=== PATIENT | female | born 1955 | race Caucasian/White ===

== ENCOUNTER 2016-08-27 16:27 | Emergency (ER) | payer BC ==
[2016-08-27] MEDS ORDERED: IBUPROFEN 800 MG TABLET PO ONE (16:49)
--- NOTE | 2016-08-27 16:51 | ER Document Report ---
ED Medical Screen (RME) - General Chief Complaint: Shortness Of Breath Stated Complaint: RIGHT SIDE RIB/CHEST PAIN Time Seen by Provider: 08/27/16 16:41 Mode of Arrival: Wheelchair Information source: Patient TRAVEL OUTSIDE OF THE [place] IN LAST 30 DAYS: No - HPI Patient complains to provider of: right sided chest pain Associated Symptoms: Body/muscle aches, Chills, Cough (nonproductive), Dizzy/ lightheaded, Shortness of breath Notes: 08/27/16 16:50 Patient is a 61-year-old female with a history of asthma, frequent pneumonia, congestive heart failure, MS, DVT/PE, who is currently on Eliquis, as well as many other medications, she presents to the emergency room complaining of right- sided chest pain that is worsened with coughing or deep breathing, she has had a nonproductive cough for several weeks now, was prescribed a Z-Monty recently by her primary care provider which has not changed her symptoms at all, today she developed sided chest pain, she also has lightheadedness and dyspnea on exertion - Related Data Allergies/Adverse Reactions: No Known Allergies Allergy (Verified 08/27/16 16:37) Past Medical History - Social History Chew tobacco use (# tins/day): No Frequency of alcohol use: None Drug Abuse: None - Past Medical History Cardiac Medical History: Reports: Hx Heart Attack - 2014/Dr Joe Kingsley/gave ok Denies: Hx Coronary Artery Disease, Hx Hypertension Pulmonary Medical History: Reports: Hx Asthma, Hx Bronchitis - URI yearly until heart attack 2014, Hx Pneumonia - LL lobe Denies: Hx 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 Neurological Medical History: Denies: Hx Cerebrovascular Accident, Hx Seizures Renal/ Medical History: Denies: Hx Peritoneal Dialysis Musculoskeltal Medical History: Reports Hx Arthritis - ankles Psychiatric Medical History: Reports: Hx Depression - Immunizations Hx Diphtheria, Pertussis, Tetanus Vaccination: No Physical Exam - Vital signs Vitals: Temp Pulse Resp BP Pulse Ox 97.6 F 75 24 H 132/71 H 97 08/27/16 16:36 08/27/16 16:36 08/27/16 16:36 08/27/16 16:36 08/27/16 16:36 Course - Vital Signs Vital signs: Temp Pulse Resp BP Pulse Ox 97.6 F 75 24 H 132/71 H 97 08/27/16 16:36 08/27/16 16:36 08/27/16 16:36 08/27/16 16:36 08/27/16 16:36
[2016-08-27 17:26] LABS: ABSOLUTE BASOPHILS # (AUTO) 0.1 10^3/uL (0.0-0.2); ABSOLUTE EOSINOPHILS # (AUTO) 0.2 10^3/uL (0.0-0.6); ABSOLUTE LYMPHOCYTES (AUTO) 1.7 10^3/uL (0.5-4.7); ABSOLUTE MONOCYTES (AUTO) 0.5 10^3/uL (0.1-1.4); ABSOLUTE NEUT (AUTO) 4.2 10^3/uL (1.7-8.2); BASOPHILS % (AUTO) 1.1 % (0-2); EOSINOPHILS % (AUTO) 2.3 % (0-6); HEMATOCRIT 41.8 % (36.0-47.0); HEMOGLOBIN 13.5 g/dL (12.0-15.5); HGB HCT DIFFERENCE -1.3; LYMPHOCYTES % (AUTO) 26.3 % (13-45); MEAN CORPUSCULAR HEMOGLOBIN 29.9 pg (27.0-33.4); MEAN CORPUSCULAR HGB CONC 32.3 g/dL (32.0-36.0); MEAN CORPUSCULAR VOLUME 93 fl (80-97); MONOCYTES % (AUTO) 6.9 % (3-13); RED BLOOD COUNT 4.52 10^6/uL (3.72-5.28); RED CELL DISTRIBUTION WIDTH 14.1 % (11.5-14.0); SEGMENTED NEUTROPHILS % (AUTO) 63.4 % (42-78); WHITE BLOOD COUNT 6.6 10^3/uL (4.0-10.5)
[2016-08-27 17:36] LABS: PROTHROMBIN TIME 13.6 SEC (11.4-15.4)
[2016-08-27 17:37] LABS: PARTIAL THROMBOPLASTIN TIME 29.9 SEC (23.5-35.8)
--- NOTE | 2016-08-27 17:39 | RADIOLOGY REPORT (SQ) ---
EXAM DESCRIPTION: CHEST PA/LAT COMPLETED DATE/TIME: 08/27/2016 5:28 pm REASON FOR STUDY: right sided cp COMPARISON: None. EXAM PARAMETERS: NUMBER OF VIEWS: two views TECHNIQUE: Digital Frontal and Lateral radiographic views of the chest acquired. RADIATION DOSE: NA LIMITATIONS: none FINDINGS: LUNGS AND PLEURA: Re- demonstration of left lung base scarring. No opacities, masses or p neumothorax. No pleural effusion. MEDIASTINUM AND HILAR STRUCTURES: No masses or contour abnormalities. HEART AND VASCULAR STRUCTURES: Heart normal size. No evidence for failure. BONES: No acute findings. HARDWARE: None in the chest. OTHER: No other significant finding. IMPRESSION: NO SIGNIFICANT RADIOGRAPHIC FINDING IN THE CHEST. TECHNICAL DOCUMENTATION: JOB ID: [id number] [employer]- All Rights Reserved
[2016-08-27 17:43] LABS: ALANINE AMINOTRANSFERASE 39 U/L (9-52); ALBUMIN 3.8 g/dL (3.5-5.0); ALKALINE PHOSPHATASE 80 U/L (38-126); ANION GAP 9 (5-19); ASPARTATE AMINO TRANSFERASE 35 U/L (14-36); BILIRUBIN,DIRECT 0.3 mg/dL (0.0-0.4); BILIRUBIN,TOTAL 0.9 mg/dL (0.2-1.3); BLOOD UREA NITROGEN 14 mg/dL (7-20); CALCIUM 8.9 mg/dL (8.4-10.2); CARBON DIOXIDE 29 mmol/L (22-30); CHLORIDE 102 mmol/L (98-107); CREATINE KINASE 48 U/L (30-135); CREATININE RESULT 0.87 mg/dL (0.52-1.25); GLUCOSE 92 mg/dL (75-110); POTASSIUM 4.9 mmol/L (3.6-5.0); SODIUM 139.7 mmol/L (137-145); TOTAL PROTEIN 6.9 g/dL (6.3-8.2)
[2016-08-27 17:59] LABS: TROPONIN I < 0.012 ng/mL
--- NOTE | 2016-08-27 18:09 | ER Document Report ---
ED General - General Mode of Arrival: Wheelchair Information source: Patient TRAVEL OUTSIDE OF THE [place] IN LAST 30 DAYS: No - HPI Onset: Yesterday - Refer to HPI notes <ARIK PIMENTEL - Last Filed: 08/27/16 18:30> <JERRICAANNIE MATTHEW - Last Filed: 08/27/16 22:31> - General Chief Complaint: Shortness Of Breath Stated Complaint: RIGHT SIDE RIB/CHEST PAIN Time Seen by Provider: 08/27/16 16:41 Notes: Patient is a 61 year old female presenting to the emergency department for right -sided chest pain that is exacerbated with coughing and deep breathing. Patient' s pain was onset last night around 23:00. Patient states her pain is located under her right breast in her rib cage. Patient states she has also been coughing for the past month and states her cough causes her to urinate. Patient has been taking a Z-Monty for her symptoms without relief. Patient also complains of dyspnea with exertion and some lightheadedness. Patient is on Eliquis and has a history of DVT/PE, NE, CHF, asthma and frequent pneumonia. Patient has no known drug allergies. (ARIK PIMENTEL) - Related Data Allergies/Adverse Reactions: No Known Allergies Allergy (Verified 08/27/16 16:37) Past Medical History - General Information source: Patient - Social History Smoking Status: Never Smoker Chew tobacco use (# tins/day): No Frequency of alcohol use: None Drug Abuse: None Family History: CAD, CVA, Hyperlipidemia, Hypertension Patient has suicidal ideation: No Patient has homicidal ideation: No - Past Medical History Cardiac Medical History: Reports: Hx Congestive Heart Failure, Hx Heart Attack - 2014/Dr Marisa Alfredo/gave trish Pulmonary Medical History: Reports: Hx Asthma, Hx Bronchitis - URI yearly until heart attack 2014, Hx Pneumonia - LL lobe Musculoskeltal Medical History: Reports Hx Arthritis - ankles Psychiatric Medical History: Reports: Hx Depression Surgical Hx: Negative - Immunizations Hx Diphtheria, Pertussis, Tetanus Vaccination: No <ARIK PIMENTEL - Last Filed: 08/27/16 18:30> Review of Systems - Review of Systems Constitutional: No symptoms reported EENT: No symptoms reported Cardiovascular: See HPI, Chest pain, Lightheaded Respiratory: See HPI, Cough, Short of breath Gastrointestinal: No symptoms reported. denies: Abdominal pain Genitourinary: No symptoms reported Female Genitourinary: No symptoms reported Musculoskeletal: No symptoms reported Skin: No symptoms reported Hematologic/Lymphatic: No symptoms reported Neurological/Psychological: No symptoms reported -: Yes All other systems reviewed and negative <ARIK PIMENTEL - Last Filed: 08/27/16 18:30> Physical Exam - Vital signs Interpretation: Normal - General General appearance: Appears well, Alert In distress: Mild - HEENT Head: Normocephalic, Atraumatic Eyes: Normal Pupils: PERRL Mucous membranes: Moist - Respiratory Respiratory status: No respiratory distress Chest status: Nontender Breath sounds: Normal Chest palpation: Normal - Cardiovascular Rhythm: Regular Heart sounds: Normal auscultation Murmur: No - Abdominal Inspection: Obese Distension: No distension Bowel sounds: Normal Tenderness: Nontender Organomegaly: No organomegaly - Back Back: Normal, Tender - Tenderness to palpation over the right lateral rib cage - Extremities General upper extremity: Normal inspection, Normal ROM, Normal strength General lower extremity: Normal inspection, Normal ROM, Normal strength - Neurological Neuro grossly intact: Yes Cognition: Normal Orientation: AAOx4 [place] Coma Scale Eye Opening: Spontaneous Shari Coma Scale Verbal: Oriented [place] Coma Scale Motor: Obeys Commands Shari Coma Scale Total: 15 Speech: Normal - Psychological Associated symptoms: Normal affect, Normal mood - Skin Skin Temperature: Warm Skin Moisture: Dry <ARIK PIMENTEL - Last Filed: 08/27/16 18:30> <ANNIE BECERRIL - Last Filed: 08/27/16 22:31> - Vital signs Vitals: Temp Pulse Resp BP Pulse Ox 97.6 F 75 24 H 132/71 H 97 08/27/16 16:36 08/27/16 16:36 08/27/16 16:36 08/27/16 16:36 08/27/16 16:36 Course - Laboratory Result Diagrams: 08/27/16 17:10 08/27/16 17:10 <ARIK PIMENTEL - Last Filed: 08/27/16 18:30> - Laboratory Result Diagrams: 08/27/16 17:10 08/27/16 17:10 - Diagnostic Test Radiology reviewed: Reports reviewed - EKG Interpretation by Sd EKG shows normal: Sinus rhythm Rate: Normal Rhythm: NSR <ANNIE BECERRIL - Last Filed: 08/27/16 22:31> - Re-evaluation Re-evalutation: 08/27/16 18:57 patient has no acute findings on x-ray EKG. Still having reproducible chest wall pain. 08/27/16 19:53 Want to check on patient. She is not received medications I ordered an hour ago and is still having pain. 08/27/16 22:30 Patient feels better after Flexeril, prednisone, and nebulizer treatment. Patient ambulates and maintains her oxygen saturation at her baseline of 90%. Patient will be discharged home with Flexeril, prednisone, and Levaquin. She is to follow-up with her doctor. No evidence for NE. Patient is already on Eliquis. Stable for discharge home. Return immediately if any worsening or concerning symptoms. Understands agrees with plan. (ANNIE BECERRIL) - Vital Signs Vital signs: Temp Pulse Resp BP Pulse Ox 97.5 F 72 18 121/92 H 92 08/27/16 19:18 08/27/16 21:53 08/27/16 19:18 08/27/16 21:53 08/27/16 21:53 - Laboratory Laboratory results interpreted by me: 08/27/16 17:10 RDW 14.1 H Discharge <ARIK PIMENTEL - Last Filed: 08/27/16 18:30> <ANNIE BECERRIL - Last Filed: 08/27/16 22:31> - Discharge Clinical Impression: Bronchitis Muscle strain of chest wall Qualifiers: Encounter type: initial encounter Qualified Code(s): S29.011A - Strain of muscle and tendon of front wall of thorax, initial encounter Condition: Stable Disposition: HOME, SELF-CARE Instructions: Bronchitis ([facility]), Chest Wall Pain ([facility]) Prescriptions: Cyclobenzaprine HCl [Flexeril 10 Mg Tablet] 10 mg PO BIDP PRN #20 tablet PRN Reason: Levofloxacin [Levaquin 750 mg Tablet] 750 mg PO DAILY #5 tablet Prednisone 40 mg PO DAILY #6 tablet Referrals: MARISA ALFREDO MD [Primary Care Provider] - Follow up in 3-5 days Scribe Attestation: 08/27/16 22:31 I personally performed the services described in the documentation, reviewed and edited the documentation which was dictated to the scribe in my presence, and it accurately records my words and actions. (ANNIE BECERRIL) Scribe Documentation - Scribe Written by Scribe:: Prema Cabrera, 08/27/16 18:37 acting as scribe for :: Jerrica <ARIK PIMENTEL - Last Filed: 08/27/16 18:30>
[2016-08-27] MEDS ORDERED: CYCLOBENZAPRINE HCL 10 MG TABLET PO ONE (18:56)
[2016-08-27] MEDS ORDERED: PREDNISONE 20 MG TABLET PO ONE (18:56)
[2016-08-27] MEDS ORDERED: IPRATROPIUM/ALBUTEROL 0.5-2.5 MG/3 ML AMPUL NEB ONE (20:44)
[2016-08-27] MEDS ORDERED: LEVOFLOXACIN 750 MG TABLET PO ONE (20:45)
[2016-08-27 22:03] VITALS: BP 121/92
--- NOTE | 2016-08-28 12:58 | EKG REPORT ---
SEVERITY:- BORDERLINE ECG - SINUS RHYTHM : Confirmed by: Leticia Castillo MD 28-Aug-2016 12:56:47
== END 2016-08-27 21:53 | disposition home or self-care (01) ==
LOC: ER 16:27
DX: S29.011A Strain of muscle and tendon of front wall of thorax, initial encounter (principal); J40 Bronchitis, not specified as acute or chronic; R06.02 Shortness of breath; R07.81 Pleurodynia; R07.9 Chest pain, unspecified; R06.00 Dyspnea, unspecified; Z79.01 Long term (current) use of anticoagulants; Z86.718 Personal history of other venous thrombosis and embolism; Z86.711 Personal history of pulmonary embolism; I25.2 Old myocardial infarction; I50.9 Heart failure, unspecified; X58.XXXA Exposure to other specified factors, initial encounter
CPT/HCPCS: 93005; 94640; 99285; 36415; 87040; 82553; 82550; 85025; 85610; 85730; 80053; 84484; 83880; 71020; 93010; J7512; J7620

== ENCOUNTER 2017-12-07 21:13 | Emergency (ER) | payer BC, MEDICARE ==
[2017-12-07] MEDS ORDERED: ONDANSETRON HCL INJ/PF 4 MG/2 ML SDV IV ONE (22:13)
[2017-12-07] MEDS ORDERED: MAG HYDROX/AL HYDROX/SIMETH SUSP 30 ML UDCUP PO ONE (22:13)
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
[2017-12-07 22:53] LABS: ABSOLUTE BASOPHILS # (AUTO) 0.1 10^3/uL (0.0-0.2); ABSOLUTE MONOCYTES (AUTO) 0.7 10^3/uL (0.1-1.4); ABSOLUTE NEUT (AUTO) 6.5 10^3/uL (1.7-8.2); BASOPHILS % (AUTO) 1.1 % (0-2); EOSINOPHILS % (AUTO) 0.4 % (0-6); HEMATOCRIT 41.4 % (36.0-47.0); HEMOGLOBIN 14.3 g/dL (12.0-15.5); LYMPHOCYTES % (AUTO) 21.9 % (13-45); MEAN CORPUSCULAR HEMOGLOBIN 30.6 pg (27.0-33.4); MEAN CORPUSCULAR HGB CONC 34.6 g/dL (32.0-36.0); MEAN CORPUSCULAR VOLUME 88 fl (80-97); MONOCYTES % (AUTO) 7.1 % (3-13); PLATELET COUNT 340 10^3/uL (150-450); RED BLOOD COUNT 4.68 10^6/uL (3.72-5.28); RED CELL DISTRIBUTION WIDTH 14.7 % (11.5-14.0); SEGMENTED NEUTROPHILS % (AUTO) 69.5 % (42-78); TOTAL CELLS COUNTED % (AUTO) 100 %; WHITE BLOOD COUNT 9.4 10^3/uL (4.0-10.5)
[2017-12-07 22:57] LABS: INTERNATIONAL RATION (INR) 1.16; PROTHROMBIN TIME 15.4 SEC (11.4-15.4)
--- NOTE | 2017-12-07 23:08 | RADIOLOGY REPORT (SQ) ---
EXAM DESCRIPTION: XR CHEST 1 VIEW COMPLETED DATE/TME: 12/07/2017 22:06 CLINICAL HISTORY: 62 years Female, SOB COMPARISON: 5.2.15 NUMBER OF VIEWS/TECHNIQUE: 1/AP FINDINGS: Increased lung volume, prominent interstitium, normal cardiac silhouette, and intact bony thorax. IMPRESSION: No acute cardiopulmonary findings.
[2017-12-07 23:11] LABS: ANION GAP 14 (5-19); BLOOD UREA NITROGEN 11 mg/dL (7-20); CARBON DIOXIDE 27 mmol/L (22-30); CHLORIDE 98 mmol/L (98-107); GLUCOSE 111 mg/dL (75-110); LIPASE 44.4 U/L (23-300); SODIUM 139.1 mmol/L (137-145)
[2017-12-07 23:14] LABS: POTASSIUM 2.9 mmol/L (3.6-5.0)
[2017-12-07] MEDS ORDERED: POTASSI CL 20 MEQ/50 ML RIDER 20 MEQ/50 ML RTUPB IV SCH (23:15)
[2017-12-07] MEDS ORDERED: PREDNISONE 20 MG TABLET PO ONE (23:16)
[2017-12-07] MEDS ORDERED: IPRATROPIUM/ALBUTEROL 0.5-2.5 MG/3 ML AMPUL NEB ONE (23:16)
[2017-12-07 23:21] LABS: NT PRO BNP 579 pg/mL (5-900)
[2017-12-07 23:23] LABS: TROPONIN I < 0.012 ng/mL
[2017-12-07] MEDS ORDERED: DICYCLOMINE HCL 20 MG TABLET PO ONE (23:59)
[2017-12-08] MEDS ORDERED: FAMOTIDINE 20 MG TABLET PO ONE (00:06)
[2017-12-08] MEDS ORDERED: HALOPERIDOL LACTATE INJ 5 MG/1 ML VIAL IV ONE (00:06)
[2017-12-08] MEDS ORDERED: DIVALPROEX SODIUM 250 MG TAB.SR.24H PO ONE (00:11)
[2017-12-08 01:43] VITALS: BP 143/64
--- NOTE | 2017-12-08 20:55 | EKG REPORT ---
SEVERITY:- ABNORMAL ECG - SINUS RHYTHM NONSPECIFIC IVCD WITH LAD LEFT ANTERIOR FASCICULAR BLOCK : Confirmed by: Leticia Castillo MD 08-Dec-2017 20:54:00
== END 2017-12-08 01:49 | disposition home or self-care (01) ==
LOC: ER 21:13
DX: J06.9 Acute upper respiratory infection, unspecified (principal); B97.89 Other viral agents as the cause of diseases classified elsewhere; I50.9 Heart failure, unspecified; T50.1X6A Underdosing of loop [high-ceiling] diuretics, initial encounter; E87.6 Hypokalemia; T50.3X6A Underdosing of electrolytic, caloric and water-balance agents, initial encounter; Z91.128 Patient's intentional underdosing of medication regimen for other reason; Z91.14 Patient's other noncompliance with medication regimen; J45.909 Unspecified asthma, uncomplicated; R06.02 Shortness of breath; R05 Cough; R10.13 Epigastric pain; R11.0 Nausea; R43.8 Other disturbances of smell and taste; R06.01 Orthopnea; R50.9 Fever, unspecified; R53.1 Weakness; R07.9 Chest pain, unspecified; E66.01 Morbid (severe) obesity due to excess calories; Z68.43 Body mass index [BMI] 50.0-59.9, adult
CPT/HCPCS: 93005; 94640; 99285; 96375; 96365; 96366; 36415; 83690; 85025; 85610; 80048; 84484; 83880; 71045; 93010; A9270 ×4; J1630; J2405; J3480; J3490; J7512; J7620

== ENCOUNTER 2019-12-12 16:56 | Emergency (ER) | payer MEDICARE ==
[2019-12-12] MEDS ORDERED: PROCHLORPERAZINE EDISYLATE INJ 10 MG/2 ML VIAL IV ONE (17:12)
--- NOTE | 2019-12-12 17:14 | ER Document Report ---
ED Medical Screen (RME) - General Chief Complaint: Chest Pain Stated Complaint: CHEST PAIN Primary Care Provider: NATAN CABEZAS MD [Primary Care Provider] - Follow up as needed Mode of Arrival: Ambulatory Information source: Patient Notes: Patient presents complaining of chest pain, upper abdominal pain and back pain that started today with nausea and vomiting. Patient reports vomiting numerous episodes today. Patient denies any fever cough or cold symptoms. Patient went to her primary doctor's office and was given a shot of Zofran. Patient continually retching in triage. Patient reports a history of a thoracic aortic aneurysm, asthma, DVT and PE and takes Eliquis currently. I have greeted and performed a rapid initial assessment of this patient. A comprehensive ED assessment and evaluation of the patient, analysis of test results and completion of the medical decision making process will be conducted by additional ED providers. TRAVEL OUTSIDE OF THE [place] 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 Neurological Medical History: Denies: Hx Cerebrovascular Accident, Hx Seizures Renal/ Medical History: Denies: Hx Peritoneal Dialysis Musculoskeltal Medical History: Reports Hx Arthritis - ankles Psychiatric Medical History: Reports: Hx Depression - Immunizations Hx Diphtheria, Pertussis, Tetanus Vaccination: No Physical Exam - Vital signs Vitals: Temp Pulse Resp BP Pulse Ox 97.9 F 77 20 155/114 H 94 12/12/19 17:08 12/12/19 17:08 12/12/19 17:08 12/12/19 17:08 12/12/19 17:08 - General General appearance: Alert In distress: Mild Notes: Continually retching in triage - Abdominal Inspection: Morbidly Obese Tenderness: Tender - Epigastric Course - Vital Signs Vital signs: Temp Pulse Resp BP Pulse Ox 97.9 F 77 20 155/114 H 94 12/12/19 17:08 12/12/19 17:08 12/12/19 17:08 12/12/19 17:08 12/12/19 17:08 Doctor's Discharge - Discharge Referrals: NATAN CABEZAS MD [Primary Care Provider] - Follow up as needed
--- NOTE | 2019-12-12 18:08 | RADIOLOGY REPORT (SQ) ---
EXAM DESCRIPTION: CHEST SINGLE VIEW IMAGES COMPLETED DATE/TIME: 12/12/2019 5:49 pm REASON FOR STUDY: cp, back pain COMPARISON: 08/27/2016 TECHNIQUE: Single frontal radiographic view of the chest acquired. NUMBER OF VIEWS: One view. LIMITATIONS: Lordotic -LPO positioning. FINDINGS: LUNGS AND PLEURA: No pneumothorax. No consolidation or pleural effusion. MEDIASTINUM AND HILAR STRUCTURES: Stable given differences in technique. HEART AND VASCULAR STRUCTURES: Stable given differences in technique. BONES: No acute findings. HARDWARE: None in the chest. OTHER: No other significant finding. IMPRESSION: NO ACUTE FINDINGS.Stable given differences in technique.Lordotic -LPO positioning. TECHNICAL DOCUMENTATION: JOB ID: [id number] 2010 [employer]- All Rights Reserved Reading location - IP/workstation name: [email or web address]
--- NOTE | 2019-12-12 18:11 | EKG REPORT ---
SEVERITY:- ABNORMAL ECG - SINUS RHYTHM 77/MIN BORDERLINE IVCD WITH LAD BORDERLINE PROLONGED QT INTERVAL : Confirmed by: Armand Ram MD 12-Dec-2019 18:11:01
[2019-12-12 18:14] LABS: ABSOLUTE BASOPHILS # (AUTO) 0.1 10^3/uL (0.0-0.2); ABSOLUTE LYMPHOCYTES (AUTO) 1.1 10^3/uL (0.5-4.7); ABSOLUTE MONOCYTES (AUTO) 0.6 10^3/uL (0.1-1.4); ABSOLUTE NEUT (AUTO) 7.1 10^3/uL (1.7-8.2); BASOPHILS % (AUTO) 0.6 % (0-2); EOSINOPHILS % (AUTO) 0.5 % (0-6); HEMATOCRIT 41.3 % (36.0-47.0); HEMOGLOBIN 14.4 g/dL (12.0-15.5); LYMPHOCYTES % (AUTO) 12.9 % (13-45); MEAN CORPUSCULAR HEMOGLOBIN 31.4 pg (27.0-33.4); MEAN CORPUSCULAR HGB CONC 34.9 g/dL (32.0-36.0); MEAN CORPUSCULAR VOLUME 90 fl (80-97); MONOCYTES % (AUTO) 6.3 % (3-13); PLATELET COUNT 210 10^3/uL (150-450); RED CELL DISTRIBUTION WIDTH 14.6 % (11.5-14.0); SEGMENTED NEUTROPHILS % (AUTO) 79.7 % (42-78); TOTAL CELLS COUNTED % (AUTO) 100 %; WHITE BLOOD COUNT 8.9 10^3/uL (4.0-10.5)
[2019-12-12] MEDS ORDERED: DIPHENHYDRAMINE HCL 50 MG/ML VIAL IV ONE (18:18)
[2019-12-12 18:36] LABS: ALBUMIN 4.3 g/dL (3.5-5.0); ALKALINE PHOSPHATASE 90 U/L (38-126); ANION GAP 8 (5-19); ASPARTATE AMINO TRANSFERASE 121 U/L (14-36); BILIRUBIN,DIRECT 0.5 mg/dL (0.0-0.4); BILIRUBIN,TOTAL 1.2 mg/dL (0.2-1.3); BLOOD UREA NITROGEN 15 mg/dL (7-20); CARBON DIOXIDE 32 mmol/L (22-30); CHLORIDE 101 mmol/L (98-107); GLUCOSE 117 mg/dL (75-110); POTASSIUM 4.2 mmol/L (3.6-5.0); TOTAL PROTEIN 7.3 g/dL (6.3-8.2)
[2019-12-12 18:56] LABS: APPEARANCE,URINE SLIGHTLY-CLOUDY; BILIRUBIN,URINE NEGATIVE (NEGATIVE); COLOR,URINE YELLOW; GLUCOSE, URINE NEGATIVE (NEGATIVE); KETONES,URINE NEGATIVE (NEGATIVE); LEUKOCYTE ESTERASE,URINE TRACE (NEGATIVE); NITRITE,URINE NEGATIVE (NEGATIVE); PROTEIN,URINE NEGATIVE (NEGATIVE); URINE SPECIFIC GRAVITY 1.016
--- NOTE | 2019-12-12 20:46 | ER Document Report ---
Entered by JASON CORTES SCRIBE 12/12/19 1841 Acting as scribe for:NIRU PEREZ DO ED General - General Chief Complaint: Chest Pain > 30 Stated Complaint: CHEST PAIN Primary Care Provider: NATAN CABEZAS MD [Primary Care Provider] - Follow up as needed Mode of Arrival: Ambulatory Information source: Patient Notes: This 64 year old female patient presents to the emergency department today with complaints of abdominal pain and N/V. Patient states she has felt "slow and miserable" the past x2 weeks. Patient states she began to have burning epigastric and upper abdominal pain. Patient reports nausea and vomiting multiple times, denying hematemesis. Patient reports some back pain and denies any fever, diarrhea, or chest pain. Patient states she spoke with her PCP earlier today and went to [facility] to get a shot of Zofran. Patient states she went home and her symptoms were not relieved, so she came to the ED. Patient reports medical history of a heart attack, PE, DVT, CHF, asthma, and states she is short of breath at baseline. Patient states she was recently tested for covid x1.5-2 weeks ago only because the test was available, and the results were negative. TRAVEL OUTSIDE OF THE [place] IN LAST 30 DAYS: No - Related Data Allergies/Adverse Reactions: latex Allergy (Verified 12/12/19 18:19) Home Medications: prozac, eliquis Past Medical History - General Information source: Patient - Social History Smoking Status: Never Smoker Cigarette use (# per day): No Frequency of alcohol use: None Drug Abuse: None Family History: CAD, CVA, Hyperlipidemia, Hypertension - Past Medical History Cardiac Medical History: Reports: Hx Congestive Heart Failure, Hx DVT, Hx Heart Attack - 2015/Dr Joe Kingsley/gave ok, Hx Pulmonary Embolism Pulmonary Medical History: Reports: Hx Asthma, Hx Bronchitis - URI yearly until heart attack 2014, Hx Pneumonia - LL lobe Musculoskeletal Medical History: Reports Hx Arthritis - ankles Psychiatric Medical History: Reports: Hx Depression Past Surgical History: Reports: Hx Gynecologic Surgery - D&C, Hx Tonsillectomy - Immunizations Hx Diphtheria, Pertussis, Tetanus Vaccination: No Review of Systems - Review of Systems Constitutional: See HPI. denies: Fever EENT: No symptoms reported Cardiovascular: See HPI. denies: Chest pain Respiratory: See HPI Gastrointestinal: See HPI, Abdominal pain - epigastric and upper abdomen, Nausea, Vomiting. denies: Diarrhea, Blood in vomit Genitourinary: No symptoms reported Female Genitourinary: No symptoms reported Musculoskeletal: See HPI, Back pain Skin: No symptoms reported Hematologic/Lymphatic: No symptoms reported Neurological/Psychological: No symptoms reported -: Yes All other systems reviewed and negative Physical Exam - Vital signs Vitals: Temp Pulse Resp BP Pulse Ox 97.9 F 77 20 155/114 H 94 12/12/19 17:08 12/12/19 17:08 12/12/19 17:08 12/12/19 17:08 12/12/19 17:08 - General General appearance: Appears well, Alert - HEENT Head: Normocephalic, Atraumatic Eyes: Normal Pupils: PERRL - Respiratory Respiratory status: No respiratory distress Chest status: Nontender Breath sounds: Normal Chest palpation: Normal - Cardiovascular Rhythm: Regular Heart sounds: Normal auscultation Murmur: No - Abdominal Inspection: Obese, Other - Soft Distension: No distension Bowel sounds: Normal Notes: Tenderness with palpation to the epigastric region and bilateral upper quadrants. - Extremities General upper extremity: Normal inspection, Normal ROM General lower extremity: Normal inspection, Normal ROM. No: Edema - Neurological Neuro grossly intact: Yes Cognition: Normal Orientation: AAOx4 Shari Coma Scale Eye Opening: Spontaneous [place] Coma Scale Verbal: Oriented [place] Coma Scale Motor: Obeys Commands [place] Coma Scale Total: 15 Speech: Normal Sensory: Normal - Psychological Associated symptoms: Normal affect, Normal mood - Skin Skin Temperature: Warm Skin Moisture: Dry Skin Color: Normal Course - Re-evaluation Re-evalutation: 12/12/19 20:43 MDM 64 year old with abdominal pain. No fever. Nontoxic. She is better here and will not wait for ct. She may have gallstones certainly. Encouraged very close follow up and she expressed understanding. She also knows to return here for fever, abdominal pain or other problems or concerns. - Vital Signs Vital signs: Temp Pulse Resp BP Pulse Ox 97.9 F 77 15 129/59 H 93 12/12/19 17:08 12/12/19 17:08 12/12/19 20:01 12/12/19 20:01 12/12/19 20:01 - Laboratory Result Diagrams: 12/12/19 17:55 12/12/19 17:55 Laboratory results interpreted by me: 12/12/19 12/12/19 12/12/19 17:55 17:55 18:10 RDW 14.6 H Lymph % (Auto) 12.9 L Seg Neutrophils % 79.7 H Carbon Dioxide 32 H Glucose 117 H Direct Bilirubin 0.5 H AST 121 H ALT 54 H Lipase 951.0 H Urine Urobilinogen 2.0 H Ur Leukocyte Esterase TRACE H Urine Ascorbic Acid 40 H Discharge - Discharge Clinical Impression: Pancreatitis Qualifiers: Chronicity: acute Pancreatitis type: unspecified pancreatitis type Acute pancreatitis complication: unspecified Qualified Code(s): K85.90 - Acute pancreatitis without necrosis or infection, unspecified Condition: Stable Disposition: HOME, SELF-CARE Instructions: Clear Liquid Diet ([facility]), Pancreatitis ([facility]) Additional Instructions: Rest, clear liquids, please return here for fever, weakness, chest pain, shortness of breath or other problems or concerns. Medicine has been sent to [facility] in [place]. Prescriptions: Hydrocodone/Acetaminophen [[place] 5-325 mg Tablet] 1 tab PO TID #12 tablet Ondansetron [Zofran Odt 4 mg Tablet] 1 - 2 tab PO Q4H PRN #15 tab.rapdis PRN Reason: For Nausea/Vomiting Referrals: NATAN CABEZAS MD [Primary Care Provider] - Follow up as needed I personally performed the services described in the documentation, reviewed and edited the documentation which was dictated to the scribe in my presence, and it accurately records my words and actions.
[2019-12-12 21:08] VITALS: BP 138/71
== END 2019-12-12 21:16 | disposition home or self-care (01) ==
LOC: ER 16:56
DX: K85.90 Acute pancreatitis without necrosis or infection, unspecified (principal); R10.13 Epigastric pain; R10.816 Epigastric abdominal tenderness; R10.811 Right upper quadrant abdominal tenderness; R10.812 Left upper quadrant abdominal tenderness; R11.2 Nausea with vomiting, unspecified; M54.9 Dorsalgia, unspecified; I25.2 Old myocardial infarction; J45.909 Unspecified asthma, uncomplicated; R06.02 Shortness of breath; Z79.899 Other long term (current) drug therapy; Z79.01 Long term (current) use of anticoagulants; Z86.711 Personal history of pulmonary embolism; Z86.718 Personal history of other venous thrombosis and embolism; Z91.040 Latex allergy status
CPT/HCPCS: 93005; 99285; 96374; 96375; 36415; 83690; 83735; 85025; 80053; 81001; 84484; 71045; 93010; J1200; J0780